=== PATIENT | female | born 1965 | race Caucasian/White ===

== ENCOUNTER 2017-01-22 17:52 | Emergency (ER) | payer MEDICAID ==
[2017-01-22 18:23] VITALS: BMI 28.4
[2017-01-22 18:28] VITALS: BP 136/86; PULSE 74; RESP 19; TEMP 97.8; O2SAT 98
--- NOTE | 2017-01-22 18:36 | ED PDOC ---
Arrival/HPI - General Chief Complaint: Trauma Time Seen by Provider: 01/22/17 18:30 Historian: Patient - History of Present Illness Narrative History of Present Illness (Text): 01/22/17 18:32 51yo female with history of diabetes present with complaint of lower back pain and right knee pain s/p trauma an hour [employer]. States she slipped and fell down 6stairs, landing on her back. States she also hit her right knee against a wall. Pain is sharp, worse with movement. Did not take any medication for her pain. denies LOC, hitting her head anywhere, focal weakness, saddle anesthesia, urinary/fecal incontinence, dizziness, visual change, any other complaint. Past Medical History - Provider Review Nursing Documentation Reviewed: Yes - Infectious Disease Hx of Infectious Diseases: None - Tetanus Immunization Tetanus Immunization: Unknown - Reproductive Menopause: Yes - Past Medical History Past Medical History: No Previous - Cardiac Hx Cardiac Disorders: Yes Hx Hypertension: Yes - Pulmonary Hx Respiratory Disorders: No - Neurological Hx Neurological Disorder: No - HEENT Hx HEENT Disorder: No - Renal Hx Renal Disorder: No - Endocrine/Metabolic Hx Endocrine Disorders: Yes Hx Diabetes Mellitus Type 2: Yes - Hematological/Oncological Hx Blood Disorders: No - Integumentary Hx Dermatological Disorder: No - Musculoskeletal/Rheumatological Hx Musculoskeletal Disorders: No - Gastrointestinal Hx Gastrointestinal Disorders: Yes Other/Comment: RECTAL BLEEDING - Genitourinary/Gynecological Hx Genitourinary Disorders: Yes - Psychiatric Hx Psychophysiologic Disorder: No Hx Substance Use: No - Past Surgical History Past Surgical History: No Previous - Surgical History Other/Comment: HEAD SURGERY - Anesthesia Hx Anesthesia: Yes Hx Anesthesia Reactions: No Hx Malignant Hyperthermia: No - Suicidal Assessment Feels Threatened In Home Enviroment: No Family/Social History - Physician Review Nursing Documentation Reviewed: Yes Family/Social History: Unknown Family HX Smoking Status: Never Smoked Hx Alcohol Use: No Hx Substance Use: No Hx Substance Use Treatment: No Allergies/Home Meds Allergies/Adverse Reactions: Allergies No Known Allergies Allergy (Verified 02/05/15 23:10) Home Medications: Home Meds Medication Instructions Recorded Confirmed Pill For Diabetes 1 tab PO DAILY 08/14/15 08/14/15 Pill For High Blood Pressure 1 tab PO DAILY 08/14/15 08/14/15 Review of Systems - Physician Review All systems were reviewed & negative as marked: Yes - Review of Systems Constitutional: Normal Eyes: Normal ENT: Normal Respiratory: Normal Cardiovascular: Normal Gastrointestinal: Normal Genitourinary Female: Normal Musculoskeletal: Arthralgias (Right knee pain), Back Pain Skin: Normal Neurological: Normal Endocrine: Normal Hemo/Lymphatic: Normal Psychiatric: Normal Physical Exam Vital Signs Reviewed: Yes Vital Signs Temp Pulse Resp BP Pulse Ox 01/22/17 18:23 97.8 F 74 19 136/86 98 01/22/17 17:52 97.8 F 74 19 136/86 98 Temperature: Afebrile Blood Pressure: Normal Pulse: Regular Respiratory Rate: Normal Appearance: Positive for: Well-Appearing, Non-Toxic, Comfortable Pain Distress: None Mental Status: Positive for: Alert and Oriented X 3 - Systems Exam Head: Present: Atraumatic, Normocephalic Pupils: Present: PERRL Extroacular Muscles: Present: EOMI Conjunctiva: Present: Normal Mouth: Present: Moist Mucous Membranes Neck: Present: Normal Range of Motion Respiratory/Chest: Present: Clear to Auscultation, Good Air Exchange. No: Respiratory Distress, Accessory Muscle Use Cardiovascular: Present: Regular Rate and Rhythm, Normal S1, S2. No: Murmurs Abdomen: Present: Normal Bowel Sounds. No: Tenderness, Distention, Peritoneal Signs Back: Present: Midline Tenderness, Pain with Leg Raise (B/L). No: Paraspinal Tenderness Upper Extremity: Present: Normal Inspection. No: Cyanosis, Edema Lower Extremity: Present: NORMAL PULSES, Normal ROM (With pain on flexion), Tenderness (Right anterior knee), Swelling (mild swselling of right knee noted) , Neurovascularly Intact. No: Edema, Erythema, Deformity Neurological: Present: GCS=15, CN II-XII Intact, Speech Normal Skin: Present: Warm, Dry, Normal Color. No: Rashes Psychiatric: Present: Alert, Oriented x 3, Normal Insight, Normal Concentration Medical Decision Making ED Course and Treatment: 01/22/17 19:16 LS xray and Right knee xray - No acute finding Knee immobilizer placed and cane given. Pt's pain was controlled in ED with medication. She was ambulatory in ED. Result was DW the patient. She was DC home with a rx of Naprosyn and flexeril. Referred to her PMD/ortho. TRT ED for any new or worsening symptoms. - RAD Interpretation Radiology Orders: 01/22/17 18:30 LS SPINE WITH OBL > 18 YRS OLD [RAD] Stat 01/22/17 18:31 KNEE W PATELLA RIGHT 3 VIEW [RAD] Stat - Medication Orders Current Medication Orders: Discontinued Medications Cyclobenzaprine HCl (Flexeril) 10 mg PO STAT STA Stop: 01/22/17 18:32 Last Admin: 01/22/17 18:47 Dose: 10 MG Ketorolac Tromethamine (Toradol) 60 mg IM STAT STA Stop: 01/22/17 18:32 Last Admin: 01/22/17 18:47 Dose: 60 MG IM Administration Charges Document 01/22/17 18:47 SRE (Rec: 01/22/17 18:48 SRE [id number]) Injection Site MAR Injection Site Left Gluteus Jesus Charges for Administration # of IM Administrations 1 Disposition/Present on Arrival - Present on Arrival Any Indicators Present on Arrival: No History of DVT/PE: No History of Uncontrolled Diabetes: No Urinary Catheter: No History of Decub. Ulcer: No History Surgical Site Infection Following: None - Disposition Have Diagnosis and Disposition been Completed?: Yes Diagnosis: Knee sprain, Back strain Disposition: HOME/ ROUTINE Disposition Time: 19:20 Patient Plan: Discharge Condition: STABLE Discharge Instructions (ExitCare): Back Pain (ED), Knee Sprain (ED) Additional Instructions: Follow up with your doctor/Orthopedist Return to ED for any new or worsening symptoms Prescriptions: Cyclobenzaprine [Cyclobenzaprine HCl] 10 mg PO TID #10 tab Naproxen [Naprosyn] 500 mg PO BID #20 tab Referrals: Jamar Smith III, MD [Medical Doctor] - Follow up with primary Forms: WORK NOTE
--- NOTE | 2017-01-23 11:06 | RAD ---
PROCEDURE: Radiographs of the Lumbar Spine. HISTORY: back pain s/p trauma COMPARISON: Comparison made with lumbar spine radiographs dated 11/06/2016. FINDINGS: BONES: Current study re- demonstrates chronic appearing anterior wedge deformity of the T12, T11 and to a much lesser degree L1 segments. Remaining vertebral bodies otherwise exhibit relatively normal stature. There is slight increase kyphosis centered at the T11 level. DISC SPACES: Minor multilevel degenerative spondylosis. Disc space heights are relatively maintained. Small marginal anterolateral osteophytes are present. The facet joints are mildly hypertrophic L5-S1 through the L3-L4 levels. Degenerative spondylosis also noted in the lower thoracic disc space levels. OTHER FINDINGS: None. IMPRESSION: The no acute fractures. 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 Minor multilevel degenerative spondylosis.
--- NOTE | 2017-01-23 11:33 | RAD ---
PROCEDURE: Right knee 01/22/2017 HISTORY: knee pain s/p trauma COMPARISON: No prior study available for comparison TECHNIQUE: Three views of the right knee performed. FINDINGS: Current study reveals no evidence of acute displaced fracture nor dislocation. The osseous structures do appear intact. Joint spaces preserved. Slight spurring of the tibial spines lateral on more so than medial. There also are small marginal lateral joint space osteophytes. Small posterior patellar osteophyte formation with small anterior superior patella enthesophyte Note that evaluation for joint effusion is somewhat limited due to poor patient positioning in the lateral projection IMPRESSION: No acute fractures. Mild DJD as described.
== END 2017-01-22 19:41 | disposition home or self-care (01) ==
LOC: ED 17:52
DX: S39.012A Strain of muscle, fascia and tendon of lower back, initial encounter (principal); S83.91XA Sprain of unspecified site of right knee, initial encounter; W10.9XXA Fall (on) (from) unspecified stairs and steps, initial encounter
CPT/HCPCS: 29530; 72110; 73562; 96372; 99284; J1885